=== PATIENT | male | born 1945 ===

== ENCOUNTER 2021-11-22 09:24 | Outpatient (CLI) | payer OTHER | END 2021-11-22 09:46 | disposition home or self-care (01) | LOC: LAB 09:24 | DX: R22.1 Localized swelling, mass and lump, neck (principal) ==

== ENCOUNTER 2021-11-23 07:40 | Outpatient (CLI) | payer OTHER | END 2021-11-23 07:52 | disposition home or self-care (01) | LOC: RAD 07:40 | PROVIDERS: ATTEND Internal Medicine Gastroenterology | DX: R22.1 Localized swelling, mass and lump, neck (principal) | CPT/HCPCS: 70491; 71046; 76536; Q9965 ==

== ENCOUNTER 2021-11-24 06:53 | Outpatient (CLI) | payer OTHER | END 2021-11-24 07:04 | disposition home or self-care (01) | LOC: LAB 06:53 | PROVIDERS: ATTEND Internal Medicine Gastroenterology | DX: C81.90 Hodgkin lymphoma, unspecified, unspecified site (principal); R50.9 Fever, unspecified; D50.0 Iron deficiency anemia secondary to blood loss (chronic) ==

== ENCOUNTER 2021-11-27 07:12 | Outpatient (CLI) | payer OTHER | END 2021-11-27 07:27 | disposition home or self-care (01) | LOC: TOM 07:12 | PROVIDERS: ATTEND Internal Medicine Gastroenterology | DX: R22.1 Localized swelling, mass and lump, neck (principal) | CPT/HCPCS: 71260; 74177; Q9965 ==

== ENCOUNTER 2022-11-27 10:01 | Outpatient (CLI) | payer OTHER | END 2022-11-27 10:07 | disposition home or self-care (01) | LOC: SONOGRAMA 10:01 | PROVIDERS: ATTEND Specialist | DX: L03.317 Cellulitis of buttock (principal) ==

== ENCOUNTER 2024-08-04 11:26 | Outpatient (CLI) | payer OTHER | END 2024-08-04 11:32 | disposition home or self-care (01) | LOC: RAD 11:26 | PROVIDERS: ATTEND Internal Medicine Gastroenterology | DX: R05.9 Cough, unspecified (principal) ==